=== PATIENT | male | born 1935 | race Caucasian/White ===

== ENCOUNTER → 2023-05-21 06:20 | Day surgery (SDC) | payer OTHER, SELFPAY ==
[2023-05-21 07:36] LABS: Glucose - Point of Care 130 mg/dl (70-99)
== END ==
LOC: GI 06:20
PROVIDERS: ATTENDING PHYSICIAN Internal Medicine Gastroenterology
DX: Z12.11 Encounter for screening for malignant neoplasm of colon (principal); D12.3 Benign neoplasm of transverse colon; Z85.038 Personal history of other malignant neoplasm of large intestine; Z98.0 Intestinal bypass and anastomosis status
CPT/HCPCS: 45385; 88305; 82962

== ENCOUNTER → 2023-07-03 08:56 | Outpatient (REF) | payer OTHER, SELFPAY ==
[2023-07-03 10:09] LABS: % Basophils 0.3 % (0-2); % Eosinophils 1.4 % (0-6); % Immature Granulocytes 0.4 % (0-0.5); % Lymphocytes 22.6 % (20.5-51.1); % Neutrophils 67.3 % (42.2-75.2); Absolute Eosinophils 0.1 10^3/uL (0-0.7); Absolute Lymphocytes 1.7 10^3/uL (1.2-3.4); Absolute Monocytes 0.6 10^3/uL (0.1-0.6); Absolute Neutrophils 5.2 10^3/uL (1.4-6.5); Hematocrit 35.2 % (39.0-52.0); Hemoglobin 12.1 g/dL (13.0-18.0); Mean Corp Hgb Conc. 34.4 g/dL (33.0-37.0); Mean Corpuscular Hgb 32.7 pg (27.0-31.0); Mean Corpuscular Volume 95.1 fL (80.0-94.0); Mean Platelet Volume 10.5 fL (7.4-10.4); Nucleated Red Blood Cells % 0 % (-); Platelet Count 206 10^3/uL (130-400); Red Cell Dist. Width 13.8 % (11.5-14.5); White Blood Cell Count 7.7 10^3/uL (4.8-10.8)
[2023-07-03 10:38] LABS: Iron 99 ug/dl (49-181)
[2023-07-03 10:49] LABS: Percent Saturation 33 % (20-50); Total Iron Binding Capacity 297 ug/dl (261-462)
[2023-07-03 11:45] LABS: Ferritin 20.3 ng/ml (17.9-464.0)
[2023-07-03 12:28] LABS: CEA 1.54 ng/ml
== END ==
LOC: REG 08:56
PROVIDERS: ATTENDING PHYSICIAN Internal Medicine Hematology & Oncology; FAMILY PHYSICIAN Internal Medicine
DX: C18.6 Malignant neoplasm of descending colon (principal); D51.9 Vitamin B12 deficiency anemia, unspecified; D50.8 Other iron deficiency anemias; Z86.718 Personal history of other venous thrombosis and embolism; Z95.828 Presence of other vascular implants and grafts; Z79.01 Long term (current) use of anticoagulants
CPT/HCPCS: 36415; 82378; 82728; 83540; 83550; 85025

== ENCOUNTER → 2023-10-13 08:11 | Outpatient (REF) | payer OTHER, SELFPAY ==
[2023-10-13 09:11] LABS: Blood Urea Nitrogen 41 mg/dl (9-20); Calcium 9.9 mg/dl (8.4-10.2); Carbon Dioxide 25 mmol/L (22-30); Chloride 107 mmol/L (98-107); Glucose 120 mg/dl (70-99); Potassium 4.9 mmol/L (3.5-5.1); Sodium 142 mmol/L (135-145); eGFR 41.44
== END ==
LOC: REG 08:11
PROVIDERS: ATTENDING PHYSICIAN Internal Medicine Cardiovascular Disease; FAMILY PHYSICIAN Internal Medicine
DX: I10 Essential (primary) hypertension (principal)
CPT/HCPCS: 36415; 80048

== ENCOUNTER → 2023-10-14 07:41 | Outpatient (REF) | payer OTHER, SELFPAY ==
[2023-10-14 08:51] LABS: % Basophils 0.3 % (0-2); % Eosinophils 1.2 % (0-6); % Immature Granulocytes 0.3 % (0-0.5); % Monocytes 7.7 % (1.7-9.3); % Neutrophils 71.5 % (42.2-75.2); Absolute Eosinophils 0.1 10^3/uL (0-0.7); Absolute Lymphocytes 1.7 10^3/uL (1.2-3.4); Absolute Monocytes 0.7 10^3/uL (0.1-0.6); Absolute Neutrophils 6.5 10^3/uL (1.4-6.5); Hemoglobin 12.2 g/dL (13.0-18.0); Mean Corp Hgb Conc. 33.9 g/dL (33.0-37.0); Mean Corpuscular Hgb 32.5 pg (27.0-31.0); Mean Platelet Volume 10.7 fL (7.4-10.4); Nucleated Red Blood Cells % 0 % (-); Platelet Count 220 10^3/uL (130-400); Red Blood Cell Count 3.75 10^6/uL (4.70-6.10); Red Cell Dist. Width 13.4 % (11.5-14.5); White Blood Cell Count 9.1 10^3/uL (4.8-10.8)
[2023-10-14 09:12] LABS: Iron 107 ug/dl (49-181)
[2023-10-14 09:22] LABS: Percent Saturation 35 % (20-50); Total Iron Binding Capacity 301 ug/dl (261-462)
[2023-10-14 09:44] LABS: CEA 1.85 ng/ml
[2023-10-14 09:50] LABS: Ferritin 22.5 ng/ml (17.9-464.0)
== END ==
LOC: REG 07:41
PROVIDERS: ATTENDING PHYSICIAN Internal Medicine Hematology & Oncology; FAMILY PHYSICIAN Internal Medicine
DX: C18.6 Malignant neoplasm of descending colon (principal); D51.9 Vitamin B12 deficiency anemia, unspecified; D50.8 Other iron deficiency anemias; Z86.718 Personal history of other venous thrombosis and embolism; Z95.828 Presence of other vascular implants and grafts; Z79.01 Long term (current) use of anticoagulants
CPT/HCPCS: 36415; 82378; 82728; 83540; 83550; 85025

== ENCOUNTER → 2023-11-14 09:17 | Outpatient (REF) | payer OTHER, SELFPAY ==
[2023-11-14 12:03] LABS: Glycohemoglobin (HgbA1c) 6.6 % (4.0-5.6)
[2023-11-14 13:02] LABS: ALT (SGPT) 14 U/L (0-50); AST (SGOT) 19 U/L (17-59); Albumin 4.3 g/dl (3.5-5.0); Alkaline Phosphatase 82 U/L (38-126); Blood Urea Nitrogen 42 mg/dl (9-20); Calcium 9.3 mg/dl (8.4-10.2); Carbon Dioxide 26 mmol/L (22-30); Glucose 106 mg/dl (70-99); HDL Cholesterol 52 mg/dl; LDL Cholesterol, Calculated 63 mg/dl; Total Bilirubin 0.6 mg/dl (0.2-1.3); Total Cholesterol 127 mg/dl (50-199); Triglyceride 62 mg/dl (10-149); Very Low Density Lipoprotein 12 mg/dl (0-30); eGFR 44.78
[2023-11-14 13:26] LABS: Chloride 108 mmol/L (98-107); Potassium 4.9 mmol/L (3.5-5.1); Sodium 141 mmol/L (135-145)
== END ==
LOC: REG 09:17
PROVIDERS: ATTENDING PHYSICIAN Internal Medicine; REFERRING PHYSICIAN Internal Medicine Cardiovascular Disease
DX: E11.22 Type 2 diabetes mellitus with diabetic chronic kidney disease (principal); I10 Essential (primary) hypertension; N18.31 Chronic kidney disease, stage 3a
CPT/HCPCS: 36415; 80053; 80061; 83036

== ENCOUNTER → 2024-01-12 09:35 | Outpatient (REF) | payer OTHER, SELFPAY ==
[2024-01-12 11:09] LABS: % Basophils 0.3 % (0-2); % Eosinophils 1.1 % (0-6); % Immature Granulocytes 0.5 % (0-0.5); % Lymphocytes 23.8 % (20.5-51.1); % Monocytes 8.1 % (1.7-9.3); % Neutrophils 66.2 % (42.2-75.2); Absolute Eosinophils 0.1 10^3/uL (0-0.7); Absolute Lymphocytes 2.1 10^3/uL (1.2-3.4); Absolute Monocytes 0.7 10^3/uL (0.1-0.6); Absolute Neutrophils 5.9 10^3/uL (1.4-6.5); Hematocrit 35.8 % (39.0-52.0); Hemoglobin 11.9 g/dL (13.0-18.0); Mean Corp Hgb Conc. 33.2 g/dL (33.0-37.0); Mean Corpuscular Volume 96.2 fL (80.0-94.0); Mean Platelet Volume 10.7 fL (7.4-10.4); Nucleated Red Blood Cells % 0 % (-); Platelet Count 224 10^3/uL (130-400); Red Blood Cell Count 3.72 10^6/uL (4.70-6.10); Red Cell Dist. Width 13.3 % (11.5-14.5); White Blood Cell Count 8.9 10^3/uL (4.8-10.8)
[2024-01-12 11:59] LABS: Iron 93 ug/dl (49-181)
[2024-01-12 12:10] LABS: Percent Saturation 30 % (20-50); Total Iron Binding Capacity 305 ug/dl (261-462)
[2024-01-12 18:55] LABS: Ferritin 30.9 ng/ml (17.9-464.0)
[2024-01-12 20:35] LABS: CEA 1.77 ng/ml
== END ==
LOC: REG 09:35
PROVIDERS: ATTENDING PHYSICIAN Internal Medicine Hematology & Oncology; FAMILY PHYSICIAN Internal Medicine
DX: C18.6 Malignant neoplasm of descending colon (principal); D51.9 Vitamin B12 deficiency anemia, unspecified; D50.8 Other iron deficiency anemias; Z86.718 Personal history of other venous thrombosis and embolism; Z95.828 Presence of other vascular implants and grafts; Z79.01 Long term (current) use of anticoagulants
CPT/HCPCS: 36415; 82378; 82728; 83540; 83550; 85025

== ENCOUNTER → 2024-03-08 09:06 | Outpatient (REF) | payer OTHER, SELFPAY ==
[2024-03-08 10:17] LABS: % Basophils 0.3 % (0-2); % Eosinophils 3.6 % (0-6); % Immature Granulocytes 0.5 % (0-0.5); % Lymphocytes 24.9 % (20.5-51.1); % Monocytes 8.1 % (1.7-9.3); % Neutrophils 62.6 % (42.2-75.2); Absolute Eosinophils 0.4 10^3/uL (0-0.7); Absolute Immature Granulocytes 0.1 10^3/uL (0-0.05); Absolute Lymphocytes 2.5 10^3/uL (1.2-3.4); Absolute Monocytes 0.8 10^3/uL (0.1-0.6); Absolute Neutrophils 6.4 10^3/uL (1.4-6.5); Hematocrit 37.6 % (39.0-52.0); Hemoglobin 12.5 g/dL (13.0-18.0); Mean Corp Hgb Conc. 33.2 g/dL (33.0-37.0); Mean Corpuscular Hgb 32.8 pg (27.0-31.0); Mean Corpuscular Volume 98.7 fL (80.0-94.0); Mean Platelet Volume 10.3 fL (7.4-10.4); Nucleated Red Blood Cells % 0 % (-); Platelet Count 254 10^3/uL (130-400); Red Blood Cell Count 3.81 10^6/uL (4.70-6.10); Red Cell Dist. Width 13.1 % (11.5-14.5); White Blood Cell Count 10.2 10^3/uL (4.8-10.8)
[2024-03-08 10:33] LABS: Glycohemoglobin (HgbA1c) 6.7 % (4.0-5.6)
[2024-03-08 11:51] LABS: ALT (SGPT) 16 U/L (0-50); AST (SGOT) 21 U/L (17-59); Albumin 4.4 g/dl (3.5-5.0); Alkaline Phosphatase 83 U/L (38-126); Blood Urea Nitrogen 32 mg/dl (9-20); Calcium 9.5 mg/dl (8.4-10.2); Carbon Dioxide 25 mmol/L (22-30); Chloride 105 mmol/L (98-107); Glucose 100 mg/dl (70-99); Potassium 5.1 mmol/L (3.5-5.1); Sodium 144 mmol/L (135-145); Total Bilirubin 0.6 mg/dl (0.2-1.3); Total Protein 7.3 g/dl (6.3-8.2); eGFR 41.19
[2024-03-08 12:07] LABS: Microalbumin, Random Urine 21.6 mg/dl (0.6-1.7); Microalbumin/creatinine Ratio 292.3 mg/g
== END ==
LOC: REG 09:06
PROVIDERS: ATTENDING PHYSICIAN Internal Medicine
DX: E11.22 Type 2 diabetes mellitus with diabetic chronic kidney disease (principal); D50.0 Iron deficiency anemia secondary to blood loss (chronic)
CPT/HCPCS: 36415; 80053; 82043; 82570; 83036; 85025

== ENCOUNTER → 2024-04-01 08:31 | Outpatient (REF) | payer OTHER, SELFPAY ==
[2024-04-01 09:09] LABS: % Basophils 0.3 % (0-2); % Eosinophils 2.2 % (0-6); % Immature Granulocytes 0.3 % (0-0.5); % Lymphocytes 25.3 % (20.5-51.1); % Monocytes 7.9 % (1.7-9.3); Absolute Eosinophils 0.2 10^3/uL (0-0.7); Absolute Lymphocytes 2.3 10^3/uL (1.2-3.4); Absolute Monocytes 0.7 10^3/uL (0.1-0.6); Absolute Neutrophils 5.8 10^3/uL (1.4-6.5); Hematocrit 37.7 % (39.0-52.0); Hemoglobin 12.2 g/dL (13.0-18.0); Mean Corp Hgb Conc. 32.4 g/dL (33.0-37.0); Mean Corpuscular Hgb 31.9 pg (27.0-31.0); Mean Corpuscular Volume 98.7 fL (80.0-94.0); Mean Platelet Volume 10.1 fL (7.4-10.4); Nucleated Red Blood Cells % 0 % (-); Platelet Count 221 10^3/uL (130-400); Red Blood Cell Count 3.82 10^6/uL (4.70-6.10); Red Cell Dist. Width 13.5 % (11.5-14.5); White Blood Cell Count 9.1 10^3/uL (4.8-10.8)
[2024-04-01 10:06] LABS: Iron 121 ug/dl (49-181)
[2024-04-01 10:15] LABS: Percent Saturation 39 % (20-50); Total Iron Binding Capacity 307 ug/dl (261-462)
[2024-04-01 11:24] LABS: CEA 1.77 ng/ml
[2024-04-01 14:13] LABS: Ferritin 20.3 ng/ml (17.9-464.0)
[2024-04-01 14:45] LABS: Folate > 20.0 ng/ml (2.76-20); Vitamin B12 349 pg/ml (239-931)
== END ==
LOC: REG 08:31
PROVIDERS: ATTENDING PHYSICIAN Internal Medicine Hematology & Oncology; FAMILY PHYSICIAN Internal Medicine
DX: C18.6 Malignant neoplasm of descending colon (principal); D51.9 Vitamin B12 deficiency anemia, unspecified; D50.8 Other iron deficiency anemias; Z86.718 Personal history of other venous thrombosis and embolism; Z95.828 Presence of other vascular implants and grafts; Z79.01 Long term (current) use of anticoagulants
CPT/HCPCS: 36415; 82378; 82607; 82728; 82746; 83540; 83550; 85025

== ENCOUNTER → 2024-07-02 09:09 | Outpatient (REF) | payer OTHER, SELFPAY ==
[2024-07-02 11:03] LABS: ALT (SGPT) 16 U/L (0-50); AST (SGOT) 19 U/L (17-59); Albumin 4.6 g/dl (3.5-5.0); Alkaline Phosphatase 86 U/L (38-126); Blood Urea Nitrogen 35 mg/dl (9-20); Calcium 9.9 mg/dl (8.4-10.2); Carbon Dioxide 28 mmol/L (22-30); Chloride 105 mmol/L (98-107); Glucose 113 mg/dl (70-99); HDL Cholesterol 62 mg/dl; LDL Cholesterol, Calculated 65 mg/dl; Potassium 5.3 mmol/L (3.5-5.1); Sodium 143 mmol/L (135-145); Total Bilirubin 0.9 mg/dl (0.2-1.3); Total Cholesterol 141 mg/dl (50-199); Total Protein 7.5 g/dl (6.3-8.2); Triglyceride 73 mg/dl (10-149); Very Low Density Lipoprotein 14 mg/dl (0-30)
[2024-07-02 11:40] LABS: Glycohemoglobin (HgbA1c) 6.9 % (4.0-5.6)
== END ==
LOC: REG 09:09
PROVIDERS: ATTENDING PHYSICIAN Internal Medicine
DX: I10 Essential (primary) hypertension (principal); E11.22 Type 2 diabetes mellitus with diabetic chronic kidney disease
CPT/HCPCS: 36415; 80053; 80061; 83036

== ENCOUNTER → 2024-08-20 08:10 | Outpatient (REF) | payer OTHER, SELFPAY ==
[2024-08-20 09:13] LABS: % Basophils 0.2 % (0-2); % Eosinophils 0.8 % (0-6); % Immature Granulocytes 0.3 % (0-0.5); % Lymphocytes 22.9 % (20.5-51.1); % Monocytes 7.6 % (1.7-9.3); % Neutrophils 68.2 % (42.2-75.2); Absolute Eosinophils 0.1 10^3/uL (0-0.7); Absolute Lymphocytes 2.1 10^3/uL (1.2-3.4); Absolute Monocytes 0.7 10^3/uL (0.1-0.6); Absolute Neutrophils 6.2 10^3/uL (1.4-6.5); Hemoglobin 11.5 g/dL (13.0-18.0); Mean Corp Hgb Conc. 32.9 g/dL (33.0-37.0); Mean Corpuscular Hgb 31.9 pg (27.0-31.0); Mean Platelet Volume 10.3 fL (7.4-10.4); Nucleated Red Blood Cells % 0 % (-); Platelet Count 233 10^3/uL (130-400); Red Blood Cell Count 3.61 10^6/uL (4.70-6.10); Red Cell Dist. Width 13.5 % (11.5-14.5); White Blood Cell Count 9.2 10^3/uL (4.8-10.8)
[2024-08-20 13:53] LABS: Iron 80 ug/dl (49-181)
[2024-08-20 14:03] LABS: Percent Saturation 24 % (20-50); Total Iron Binding Capacity 322 ug/dl (261-462)
[2024-08-20 15:50] LABS: Folate > 20.0 ng/ml (2.76-20); Vitamin B12 347 pg/ml (239-931)
== END ==
LOC: REG 08:10
PROVIDERS: ATTENDING PHYSICIAN Internal Medicine Hematology & Oncology; FAMILY PHYSICIAN Internal Medicine
DX: C18.6 Malignant neoplasm of descending colon (principal); D51.9 Vitamin B12 deficiency anemia, unspecified; D50.8 Other iron deficiency anemias; Z86.718 Personal history of other venous thrombosis and embolism; Z95.828 Presence of other vascular implants and grafts; Z79.01 Long term (current) use of anticoagulants
CPT/HCPCS: 36415; 82378; 82607; 82728; 82746; 83540; 83550; 85025

== ENCOUNTER → 2024-09-03 08:19 | Outpatient (REF) | payer OTHER, SELFPAY ==
[2024-09-03 09:26] LABS: ALT (SGPT) 15 U/L (0-50); AST (SGOT) 18 U/L (17-59); Albumin 4.4 g/dl (3.5-5.0); Alkaline Phosphatase 80 U/L (38-126); Blood Urea Nitrogen 36 mg/dl (9-20); Calcium 9.3 mg/dl (8.4-10.2); Carbon Dioxide 24 mmol/L (22-30); Chloride 112 mmol/L (98-107); Glucose 91 mg/dl (70-99); Sodium 145 mmol/L (135-145); Total Bilirubin 0.7 mg/dl (0.2-1.3); Total Protein 7.2 g/dl (6.3-8.2)
[2024-09-03 09:54] LABS: TSH Reflex To Free T4 1.67 uIU/ml (0.47-4.68)
== END ==
LOC: RAD 08:19
PROVIDERS: ATTENDING PHYSICIAN Internal Medicine Cardiovascular Disease; FAMILY PHYSICIAN Internal Medicine
DX: I10 Essential (primary) hypertension (principal); I48.3 Typical atrial flutter; Z79.899 Other long term (current) drug therapy; I82.5Z2 Chronic embolism and thrombosis of unspecified deep veins of left distal lower extremity
CPT/HCPCS: 36415; 71046; 80053; 84443

== ENCOUNTER 2024-09-06 07:03 | Day surgery (SDC) | payer OTHER, SELFPAY | END 2024-09-06 09:17 | disposition home or self-care (01) | LOC: CATH 07:03 | PROVIDERS: ATTENDING PHYSICIAN Student in an Organized Health Care Education/Training Program; FAMILY PHYSICIAN Internal Medicine; OTHER PHYSICIAN Internal Medicine Cardiovascular Disease | DX: I48.3 Typical atrial flutter (principal); I35.0 Nonrheumatic aortic (valve) stenosis; I45.10 Unspecified right bundle-branch block; I10 Essential (primary) hypertension; E78.5 Hyperlipidemia, unspecified; E11.9 Type 2 diabetes mellitus without complications; G47.33 Obstructive sleep apnea (adult) (pediatric); Z85.038 Personal history of other malignant neoplasm of large intestine; Z87.891 Personal history of nicotine dependence; Z79.4 Long term (current) use of insulin; Z79.01 Long term (current) use of anticoagulants; Z79.84 Long term (current) use of oral hypoglycemic drugs | CPT/HCPCS: 92960; 93005 ==

== ENCOUNTER → 2024-09-07 13:15 | Outpatient (REF) | payer OTHER, SELFPAY | LOC: RCS 13:15 | PROVIDERS: ATTENDING PHYSICIAN Internal Medicine Cardiovascular Disease; FAMILY PHYSICIAN Internal Medicine | DX: I48.3 Typical atrial flutter (principal); I35.0 Nonrheumatic aortic (valve) stenosis | CPT/HCPCS: 93306 ==

== ENCOUNTER → 2024-09-20 12:24 | Outpatient (REF) | payer OTHER, SELFPAY ==
[2024-09-20 13:34] LABS: NT-proBNP 1770 pg/ml
== END ==
LOC: REG 12:24
PROVIDERS: ATTENDING PHYSICIAN Internal Medicine Cardiovascular Disease; FAMILY PHYSICIAN Internal Medicine
DX: I10 Essential (primary) hypertension (principal)
CPT/HCPCS: 36415; 83880

== ENCOUNTER → 2024-09-29 15:20 | Outpatient (REF) | payer OTHER, SELFPAY ==
[2024-09-29 15:00] LABS: % Basophils 0.2 % (0-2); % Eosinophils 0.9 % (0-6); % Immature Granulocytes 0.2 % (0-0.5); % Lymphocytes 19.8 % (20.5-51.1); % Monocytes 7.4 % (1.7-9.3); % Neutrophils 71.5 % (42.2-75.2); Absolute Eosinophils 0.1 10^3/uL (0-0.7); Absolute Monocytes 0.7 10^3/uL (0.1-0.6); Absolute Neutrophils 7.1 10^3/uL (1.4-6.5); Hemoglobin 11.4 g/dL (13.0-18.0); Mean Corp Hgb Conc. 32.6 g/dL (33.0-37.0); Mean Corpuscular Hgb 30.9 pg (27.0-31.0); Mean Corpuscular Volume 94.9 fL (80.0-94.0); Platelet Count 296 10^3/uL (130-400); Red Blood Cell Count 3.69 10^6/uL (4.70-6.10); Red Cell Dist. Width 13.9 % (11.5-14.5)
[2024-09-29 15:54] LABS: Vitamin D, 25-OH*** 69.3 ng/mL (30-80)
== END ==
LOC: OIDL 15:20
PROVIDERS: ATTENDING PHYSICIAN Internal Medicine Hematology & Oncology
DX: C18.6 Malignant neoplasm of descending colon (principal); D51.9 Vitamin B12 deficiency anemia, unspecified; D50.8 Other iron deficiency anemias; Z86.718 Personal history of other venous thrombosis and embolism; Z95.828 Presence of other vascular implants and grafts; Z79.01 Long term (current) use of anticoagulants
CPT/HCPCS: 82306; 85025

== ENCOUNTER → 2024-10-05 07:13 | Outpatient (REF) | payer OTHER, SELFPAY ==
[2024-10-05 08:44] LABS: % Basophils 0.3 % (0-2); % Eosinophils 1.4 % (0-6); % Immature Granulocytes 1.1 % (0-0.5); % Lymphocytes 26.9 % (20.5-51.1); % Monocytes 7.5 % (1.7-9.3); % Neutrophils 62.8 % (42.2-75.2); Absolute Eosinophils 0.1 10^3/uL (0-0.7); Absolute Immature Granulocytes 0.1 10^3/uL (0-0.05); Absolute Lymphocytes 2.8 10^3/uL (1.2-3.4); Absolute Monocytes 0.8 10^3/uL (0.1-0.6); Absolute Neutrophils 6.5 10^3/uL (1.4-6.5); Hematocrit 34.7 % (39.0-52.0); Hemoglobin 11.4 g/dL (13.0-18.0); Mean Corp Hgb Conc. 32.9 g/dL (33.0-37.0); Mean Corpuscular Hgb 31.1 pg (27.0-31.0); Mean Corpuscular Volume 94.6 fL (80.0-94.0); Mean Platelet Volume 10.9 fL (7.4-10.4); Nucleated Red Blood Cells % 0 % (-); Platelet Count 217 10^3/uL (130-400); Red Blood Cell Count 3.67 10^6/uL (4.70-6.10); Red Cell Dist. Width 14.2 % (11.5-14.5); White Blood Cell Count 10.3 10^3/uL (4.8-10.8)
[2024-10-05 09:11] LABS: ALT (SGPT) 21 U/L (0-50); AST (SGOT) 25 U/L (17-59); Albumin 4.2 g/dl (3.5-5.0); Alkaline Phosphatase 72 U/L (38-126); Blood Urea Nitrogen 51 mg/dl (9-20); Calcium 9.1 mg/dl (8.4-10.2); Carbon Dioxide 28 mmol/L (22-30); Chloride 108 mmol/L (98-107); Glucose 91 mg/dl (70-99); Potassium 4.7 mmol/L (3.5-5.1); Sodium 145 mmol/L (135-145); Total Bilirubin 0.6 mg/dl (0.2-1.3)
[2024-10-05 10:27] LABS: Glycohemoglobin (HgbA1c) 6.8 % (4.0-5.6)
== END ==
LOC: REG 07:13
PROVIDERS: ATTENDING PHYSICIAN Internal Medicine Cardiovascular Disease; FAMILY PHYSICIAN Internal Medicine
DX: I10 Essential (primary) hypertension (principal); E11.22 Type 2 diabetes mellitus with diabetic chronic kidney disease
CPT/HCPCS: 36415; 80053; 83036; 85025

== ENCOUNTER 2024-10-08 11:10 | Emergency (ER) | payer OTHER, SELFPAY ==
[2024-10-08 11:30] VITALS: BP 148/108
[2024-10-08 12:02] LABS: COVID-19 Antigen Negative (Negative)
[2024-10-08 12:07] VITALS: BP 156/64; BMI 26.7
--- NOTE | 2024-10-08 12:11 | ED.GENMED ---
History of Present Illness
General
Chief Complaint: Cold/Flu/URI Symptoms
Source: patient
Exam Limitations: none
Time Seen by Provider: 10/08/24 11:49
History of Present Illness
History of Present Illness:
89-year-old male with history of hypertension fluid retention presents with 2 days worth of chills cough and sweats. He denies shortness of breath. No measurable fever at home. No known sick contacts. He notes a clear production to his cough.
No chest pain. He is on Eliquis and has not missed any doses. No other complaints
Past History
Past History
ED Past Medical History: HTN, Hypercholesterolemia, NIDDM and Other (Benign paroxysmal vertigo November 2018)
ED Past Surgical History: Orthopedic and Other (Left thoracentesis, thyroid nodule)
Social History
Tobacco: Former smoker
Alcohol: None
Drug: None
Personal:
Living: with family
Employment: Retired
Family History
Family History: Other (Noncontributory)
Phy Exam
Physical Exam
Physical Exam:
General: Well-appearing male no acute respiratory distress
HEENT normocephalic atraumatic heart: Regular rate and rhythm
Lungs: Clear no wheeze
Extremities: Mild edema bilateral lower extremities
Skin is warm no rash
Course
Orders/Labs/Results
Orders:
Orders
10/08/24 11:33
Chest [CR Chest - 2 Views ] Urgent
Comment:
Reason For Exam: cough and chills
10/08/24 11:36
COVID-19 Antigen Urgent
Source: Nasal Swab
INF RAPID [Influenza A+B Rapid Molecular] Urgent
ROYA Source: Nasal Swab
Specimen Description:
Vital Signs
Initial and Last Documented VS:
Initial Vital Signs
Temp Pulse Resp BP Pulse Ox
99.2 F 65 20 148/108 96
10/08/24 11:30 10/08/24 11:30 10/08/24 11:30 10/08/24 11:30 10/08/24 11:30
Last Documented Vital Signs
Temp Pulse Resp BP Pulse Ox
99 F 66 16 130/63 94
10/08/24 15:08 10/08/24 15:08 10/08/24 15:08 10/08/24 15:08 10/08/24 15:08
MDM/Problems Addressed
Differential Diagnosis Includes:
Cough chills since yesterday. Consider bronchitis versus pneumonia versus URI COVID and flu test pending. Unlikely to be PE secondary to anticoagulated state. Chest x-ray pending
*Pulse Oximetry
SaO2: 96
Oxygen Mode of Delivery: Room air
Patient hypoxic: no
*Critical Care Note
Total Time (30-74mins, 75-104mins- exclusive of procedures): Not Applicable
Update Note
Update Note:
X-ray clear COVID and flu negative. Suspect URI likely viral in nature. Recommended supportive care. Stable for discharge no indication for admission
ED Attending Note
-
Portions of this chart may have been created with voice recognition software.� Occasional wrong word or��sound alike� substitutions may have occurred due to the inherent limitations of voice recognition software.
Discharge Plan
Departure
Patient Disposition: Home (Routine Discharge)
Date of Disposition: 10/08/24
Time of Disposition: 15:22
Patient with high blood pressure during this ER visit?: No
Discharge Problem:
URI (upper respiratory infection), Acute bronchitis
Instructions: Acute Bronchitis, Adult (DC)
Prescriptions:
No Action
atorvastatin 10 MG tablet
10 mg PO QPM
PreserVision AREDS 1 CAP capsule
1 cap PO BID
Caltrate 600 plus D 1 EACH tablet,chewable
1 ea PO DAILY
insulin glargine [Lantus Solostar U-100 Insulin] 300 UNITS/3 ML insulin pen
12 units SC HS
Patient Comments:
9 U
multivitamin Tablet
1 tab PO DAILY
metformin 1,000 mg Tablet
1,000 mg PO BID
Eliquis 5 mg Tablet
5 mg PO BID
amlodipine 10 mg Tablet
10 mg PO DAILY
ferrous sulfate 220 mg (44 mg iron)/5 mL Elixir
220 mg PO DAILY
metoprolol succinate 25 mg tablet extended release 24 hr
25 mg PO DAILY
docusate sodium 100 mg Capsule
100 mg PO BID Qty: 60 0RF
amiodarone 200 mg Tablet
200 mg PO BID
cyanocobalamin (vitamin B-12) 1,000 mcg Tablet
1,000 mcg PO DAILY
docusate sodium [Colace] 100 mg Capsule
100 mg PO DAILY
valsartan
160 mg PO BID
polyethylene glycol 3350 [HealthyLax] 17 gram powder in packet
17 g PO PRN PRN (Reason: constipation)
Referrals:
Sam Murdock I., DO [Family Provider, Internal Medicine]
Activity Restrictions/Additional Instructions:
Rest. Drink plenty of fluids. Use bwso-dak-offyrtz cough and cold medicines if needed. Return if worse otherwise follow-up with your doctor
Interventions
Interventions:
*Risk Screen - Suicide Last Done: 10/08/24 11:30
*General Assessment Last Done: 10/08/24 12:08
*Neglect/Abuse Screening Last Done: 10/08/24 11:30
*ED COVID-19 Vaccine History Last Done: 10/08/24 12:08
ED- Pulmonary Assessment Last Done: 10/08/24 12:10
Discharge Date and Time
Print Language: SLOVAK
[2024-10-08 15:08] VITALS: BP 130/63
== END 2024-10-08 15:29 | disposition home or self-care (01) ==
LOC: EMR 11:10
PROVIDERS: Emergency Medicine; EMERGENCY PHYSICIAN Emergency Medicine; FAMILY PHYSICIAN Internal Medicine
DX: J06.9 Acute upper respiratory infection, unspecified (principal); J20.9 Acute bronchitis, unspecified; I10 Essential (primary) hypertension; E78.00 Pure hypercholesterolemia, unspecified; E11.9 Type 2 diabetes mellitus without complications; Z79.01 Long term (current) use of anticoagulants; Z87.891 Personal history of nicotine dependence
CPT/HCPCS: 99283; 71046; 87502; 87811

== ENCOUNTER 2024-10-13 17:00 | Inpatient (IN) | payer OTHER, SELFPAY ==
[2024-10-13 11:36] VITALS: BP 131/61
[2024-10-13 11:53] LABS: % Basophils 0.1 % (0-2); % Eosinophils 0.3 % (0-6); % Immature Granulocytes 0.7 % (0-0.5); % Lymphocytes 11.3 % (20.5-51.1); % Monocytes 6.6 % (1.7-9.3); Absolute Immature Granulocytes 0.1 10^3/uL (0-0.05); Absolute Lymphocytes 1.7 10^3/uL (1.2-3.4); Absolute Neutrophils 12.3 10^3/uL (1.4-6.5); Hematocrit 30.9 % (39.0-52.0); Hemoglobin 10.5 g/dL (13.0-18.0); Mean Corpuscular Hgb 31.7 pg (27.0-31.0); Mean Corpuscular Volume 93.4 fL (80.0-94.0); Nucleated Red Blood Cells % 0 % (-); Platelet Count 179 10^3/uL (130-400); Red Blood Cell Count 3.31 10^6/uL (4.70-6.10); Red Cell Dist. Width 15.1 % (11.5-14.5); White Blood Cell Count 15.1 10^3/uL (4.8-10.8)
[2024-10-13 12:16] LABS: ALT (SGPT) 18 U/L (0-50); AST (SGOT) 20 U/L (17-59); Albumin 3.9 g/dl (3.5-5.0); Alkaline Phosphatase 70 U/L (38-126); Blood Urea Nitrogen 41 mg/dl (9-20); Calcium 8.4 mg/dl (8.4-10.2); Carbon Dioxide 24 mmol/L (22-30); Chloride 107 mmol/L (98-107); Glucose 226 mg/dl (70-99); Potassium 4.6 mmol/L (3.5-5.1); Sodium 140 mmol/L (135-145); Total Protein 6.6 g/dl (6.3-8.2)
[2024-10-13 13:42] VITALS: BP 129/61
--- NOTE | 2024-10-13 15:41 | ED.GENMED ---
History of Present Illness
General
Chief Complaint: Weakness
Source: patient and family (daughter)
Time Seen by Provider: 10/13/24 15:20
History of Present Illness
History of Present Illness:
Patient to ED with complaint of increasing weakness, worsening cough. He was seen in ED on friday for his cough. CXR neg at that time, discharged home with dx of bronchitis. Patient states he continued to become weaker. Yesterday he fell in his
garage and was unable to get up. Denies hitting his head. Reports pain to left hip and left lat ribs. Family assisted him up and into house. He refused to come to ED saying he was too week. TOday cough is worsening. Brought to ED by family for
eval. Temp of 100 at home. Poor appetite.
Past History
Past History
ED Past Medical History: HTN, Hypercholesterolemia, NIDDM and Other (Benign paroxysmal vertigo November 2018)
ED Past Surgical History: Orthopedic and Other (Left thoracentesis, thyroid nodule)
Social History
Tobacco: Former smoker
Alcohol: None
Drug: None
Personal:
Living: with family
Employment: Retired
Family History
Family History: Other (Noncontributory)
Review of Systems
Review of Systems
Allergies reviewed?: Yes
All Other Systems: ROS reviewed and negative except as documented in HPI and ROS
Constitutional: Reports no symptoms
EENT: Reports no symptoms
Respiratory: Reports cough and trouble breathing
Cardiac: Reports no symptoms
ABD/GI: Reports anorexia
: Reports no symptoms
Musculoskeletal: Reports joint pain (pain to left lat ribs, left hip)
Skin: Reports no symptoms
Neurological: Reports weakness
Psychiatric: Reports no symptoms
Phy Exam
General Physical Exam
General Presentation: moderate distress
General age: appears stated age
General Skin: warm and dry
General Habitus: normal
General Mental: alert
General Hydration: dry mucous membranes
Cardiovascular Exam
Cardiovascular Exam: regular rate/rhythm
Pulmonary Exam
Pulmonary Exam: no wheezing
Breath Sounds: Rhonchi: left lower and right lower
Chest Wall: Left lateral: tenderness
Gastrointestinal Exam
Gastrointestinal Exam: normal bowel sounds, non tender, soft and no organomegaly
Neurological Exam
Neurological Exam: alert, oriented x3, CN II-XII intact, no motor deficits, no sensory deficits and speech normal
Musculoskeletal Exam
Musculoskeletal Exam: full ROM and neuro vasc intact
Skin Exam
Skin Exam: normal color, warm/dry and no rash
Psychiatric Exam
Psychiatric Exam: normal mood/affect
Course
Orders/Labs/Results
Orders:
Orders
10/13/24 Lunch
2000 calorie (17 carb) Diabetic
At Your Request: Full Participation
Does patient need a safe tray?: No
10/13/24 11:39
CR Chest - 2 Views Urgent
Comment:
Reason For Exam: cough, L rib pain
Hip, Right 2-3 Views [CR Hip - RT w/wo Pel 2-3 Vw*] Urgent
Comment:
Reason For Exam: pain
Include a pelvis x-ray?: Yes
10/13/24 11:44
Complete Blood Count/With Diff Urgent
Comprehensive Metabolic Panel Urgent
10/13/24 15:41
0.9% Sodium Chloride 1000 ml [Nss] 1,000 ml IV BOLUS
10/13/24 15:49
CefTRIAXone [Rocephin] 1,000 mg IV NOW STA
10/13/24 15:51
Doxycycline [Vibramycin] 100 mg PO NOW STA
10/13/24 15:59
Ribs, Left 2 View No PA Chest [CR Ribs-left 2 Vw No Pa Chest] Urgent
Comment:
Reason For Exam: fall
10/13/24 16:12
Lactic Acid Urgent
10/13/24 16:29
C DIFF [C difficile Antigen & Toxins] Routine
ROYA Source: Feces/Stool
Specimen Description:
10/13/24 16:30
Admit/Transfer Patient As Directed
Co-Sign Provider:
Level of Care: Inpatient admission
Assign to:: Medical/Surgical
Physician / Group: Mera Duron
Diagnosis: community acquired pneumonia
Reason for Hospitalization: community acquired pneumonia
Expected length of stay greater than two midnights?: Yes
ELOS- Estimated Length of Stay in days: 3
I certify the patient meets the requirements for IP care: Yes
Code Status As Directed
Resuscitation Status: Full Code
10/13/24 17:24
Legionella Urinary Antigen Routine
ROYA Source: Urine
Specimen Description:
Strep pneumoniae Antigen Routine
ROYA Source: Urine
Specimen Description:
10/13/24 18:27
0.9% Sodium Chloride 1000 ml [Nss] 1,000 ml IV 80 mls/hr
Acetaminophen [Tylenol] 650 mg PO Q4HPRN PRN
Bisacodyl [Dulcolax] 10 mg RECTAL [id number] PRN
Dextrose 50%-Water [Dextrose 50% Syringe] 12.5 grams IV [id number] PRN
Docusate W/Senna [Senokot-S] 1 tablet PO BIDPRN PRN
Glucagon [GlucaGen] 1 mg IM PRN PRN
Insulin Aspart Corrective Low [Novolog Flexpen-Low Resistance] See Protocol SC AC
Lactobac/Bifidobac [Visbiome] 1 cap PO DAILY
Oxycodone [Roxicodone] 5 mg PO Q4HPRN PRN
Polyethylene Glycol Powder [Miralax] 17 grams PO DAILYPRN PRN
10/13/24 18:27
EKG [Electrocardiogram (*1)] Routine
Reason for Study: QTc Monitoring
Activity As Directed
Activity Level: As Tolerated
Bedside Glucose Monitoring As Directed
Frequency: AC&HS
Additional Instructions:: Change to q6h if pt on TPN, tube feeding or not eating
Vital Signs As Directed
Frequency: Per unit guidelines
Acapella [Rx Pep / Acapela] [RESP] Routine
Incentive Spirometry [Rx Incentive Spirometry] [RESP] Routine
Frequency: q1h while awake
Physical Therapy Consult [Pt Eval And Treat] Routine
Activity Level: As Tolerated
10/13/24 20:00
Apixaban [Eliquis] 2.5 mg PO BID
Guaifenesin [Mucinex] 600 mg PO Q12
Lidocaine [Lidocaine 4% Patch] 1 patch TOPICAL DAILY@1999
Apply Lidocaine patch(s) to:: left chest
10/13/24 21:15
Lactate Level [Lactic Acid] Q6H
10/14/24 02:00
Lactate Level [Lactic Acid] Q6H
10/14/24 06:00
Basic Metabolic Panel IN AM
Complete Blood Count/With Diff IN AM
Glycohemoglobin (HgbA1c) IN AM
Magnesium IN AM
10/14/24 08:00
Doxycycline [Vibramycin] 100 mg PO Q12
10/14/24 16:00
CefTRIAXone [Rocephin] 1,000 mg IV Q24H
Abnormal Lab Results
10/13/24 10/13/24
11:44 16:12
WBC 15.1 H 10^3/uL
(4.8-10.8)
RBC 3.31 L 10^6/uL
(4.70-6.10)
Hgb 10.5 L g/dL
(13.0-18.0)
Hct 30.9 L %
(39.0-52.0)
MCH 31.7 H pg
(27.0-31.0)
RDW 15.1 H %
(11.5-14.5)
MPV 11.0 H fL
(7.4-10.4)
Abs Immat Gran (auto) 0.1 H 10^3/uL
(0-0.05)
Absolute Neuts (auto) 12.3 H 10^3/uL
(1.4-6.5)
Absolute Monos (auto) 1.0 H 10^3/uL
(0.1-0.6)
Immature Gran % 0.7 H %
(0-0.5)
Neutrophils % 81.0 H %
(42.2-75.2)
Lymphocytes % 11.3 L %
(20.5-51.1)
BUN 41 H mg/dl
(9-20)
Creatinine 2.2 H mg/dL
(0.7-1.3)
Glucose 226 H mg/dl
(70-99)
Lactic Acid 2.5 H mmol/L
(0.7-2.0)
10/13/24 11:44
10/13/24 11:44
Vital Signs
Initial and Last Documented VS:
Initial Vital Signs
Temp Pulse Resp BP Pulse Ox
98.2 F 76 16 131/61 97
10/13/24 11:36 10/13/24 11:36 10/13/24 11:36 10/13/24 11:36 10/13/24 11:36
Last Documented Vital Signs
Temp Pulse Resp BP Pulse Ox
98.7 F 90 16 127/61 97
10/13/24 18:37 10/13/24 21:00 10/13/24 18:37 10/13/24 21:00 10/13/24 18:37
*Pulse Oximetry
SaO2: 99
Oxygen Mode of Delivery: Room air
Patient hypoxic: no
*Critical Care Note
Total Time (30-74mins, 75-104mins- exclusive of procedures): Not Applicable
Update Note
Update Note:
Patient to ED wtih complaint of increasing weakness, worsening cough. Fell yesterday due to his weakness. Seen in ED on friday, CXR neg at that time. CXR today reveals opacities bilateral lower lobes. Radiology read of probable atelectasis, less
likely pneumonia. Clinically he presnets as pneumonia. WBC 15, lactic is pending. He reports worsening cough with thick white secretions. Tachypnic. PUlse ox 95% RA. Temp of 100 at home, afebrile here. Admit to hospitalist for pneumonia,
weakness. Antibiotics started in dept.
ED Attending Note
-
Portions of this chart may have been created with voice recognition software.� Occasional wrong word or��sound alike� substitutions may have occurred due to the inherent limitations of voice recognition software.
Discharge Plan
Departure
Patient Disposition: Admit
Date of Disposition: 10/13/24
Time of Disposition: 15:51
Presentation/result/management discussed w/ accepting MD/DO: Hospitalist
Condition: Fair
Covid-19: Not Applicable
Discharge Problem:
Pneumonia, Weakness
Interventions
Interventions:
*Nursing Disposition Last Done: 10/13/24 18:30
ED- Cardiac Assessment Last Done: 10/13/24 16:27
ED- Neurological Assessment Last Done: 10/13/24 16:27
ED- Pulmonary Assessment Last Done: 10/13/24 16:27
Discharge Date and Time
Discharge Date/Time: 10/13/24 18:31
[2024-10-13 15:57] VITALS: BMI 25.6
--- NOTE | 2024-10-13 16:01 | HPS.HSE ---
Addendum entered and electronically signed by Mera Duron MD 10/13/24 20:01:
Rib X-Ray
IMPRESSION:
Probable subacute mildly displaced lateral left eighth and ninth rib fractures
-continue plan as below with pain control and incentive spirometry
Addendum entered and electronically signed by Mera Duron MD 10/13/24 20:00:
acute on chronic kidney disease
-creatinine 2.2, baseline closer to 1.5-1.7
-IVF as below
-hold CHAR FILTER TANK TENDER Valsartan
-Eliquis dose decreased as below
Addendum entered and electronically signed by Mera Duron MD 10/13/24 18:47:
Given age and creatinine, Eliquis will be reduced to 2.5mg.
Original Note:
Family Physician
-
Family Physician: Chris Cordova
Chief Complaint
-
weakness
History of Present Illness
Mr. Kevin Vaughn is a 89 yo man with hx HTN, HLD, IDDM, BPPV, CKD, atrial fibrillation s/p cardioversion, recent ER visit on 10/08 for likely URI presents to the ER with increasing weakness and worsening cough.
Patient was seen in the ER 2 days ago for cough. He states he was feeling well after hospital discharge until yesterday. He started to feel very cold/chills. He sat in the warm garage. Patient fell out of his chair and couldn't get up. He had to
wait until daughter returned home. Patient reports diarrhea over past 2 days. Denies abdominal pain. No dysuria or difficulty urinating. He has had worsening cough.
Patient reports left sided rib pain post fall.
Medical History
Past Medical History
Past Medical History: Reports Other
Additional Past Medical History:
Colon cancer
Hypertension
Hyperlipidemia
Type 2 diabetes
BPV
Thyroid nodules
Coronary artery disease
UT
Atrial flutter
Past Surgical History: Reports Other
Additional Past Surgical History:
Left thoracentesis
Left colectomy
Prostatectomy
Social History
Tobacco: Former Smoker
Alcohol: None
Drug: None
Personal:
Living: With Family
Employment: Retired
Family History
Family History: Not pertinent
Allergies / Home Medications
Allergies reflects when Allergies were last updated in [facility].
Home Medications with original date entered in [employer]
Allergy/Medication List:
Allergies
Allergy/AdvReac Type Severity Reaction Status Date / Time
No Known Allergies Allergy Verified 10/13/24 11:40
Home Medications
atorvastatin 10 mg tablet 10 mg PO QPM High cholesterol 12/07/18
vitamins A,C,P-zkal-kdolln 4,296 mcg-226 mg-90 mg capsule (PreserVision AREDS) 1 cap PO BID Supplement 12/07/18
calcium 600 mg (as carbonate)-vit D3 20 mcg (800 unit) chewable tablet (Caltrate plus D) 1 ea PO DAILY Supplement 08/28/21
insulin glargine 100 unit/mL (3 mL) subcutaneous pen (Lantus Solostar U-100 Insulin) 12 units SC HS Diabetes 08/29/21
apixaban 5 mg tablet (Eliquis) 5 mg PO BID Blood clot prevention/tx 06/25/22
metformin 1,000 mg tablet 1,000 mg PO BID Diabetes 06/25/22
multivitamin 1 tab PO DAILY Supplement 06/25/22
amlodipine 10 mg tablet 10 mg PO DAILY Blood Pressure 12/31/22
ferrous sulfate 220 mg (44 mg iron)/5 mL oral elixir 220 mg PO DAILY Supplement 12/31/22
metoprolol succinate 25 mg tablet,extended release 24 hr 25 mg PO DAILY Blood Pressure 12/31/22
docusate sodium 100 mg capsule 100 mg PO BID #60 caps 01/02/23
amiodarone 200 mg tablet 200 mg PO BID 09/06/24
cyanocobalamin (vitamin B-12) 1,000 mcg tablet 1,000 mcg PO DAILY 09/06/24
docusate sodium 100 mg capsule (Colace) 100 mg PO DAILY 09/06/24
polyethylene glycol 3350 17 gram oral powder packet (HealthyLax) 17 g PO PRN PRN constipation 09/06/24
valsartan 160 mg PO BID 09/06/24
*awaiting home med rec
Review of Systems
-
History Source: Patient
A 12 point ROS was completed and negative except as noted: Yes
Physical Exam
Vital Signs
Vital Signs
Temp Pulse Resp BP Pulse Ox
98.2 F 80 16 129/61 99
10/13/24 11:36 10/13/24 13:42 10/13/24 11:36 10/13/24 13:42 10/13/24 15:44
Physical Exam
General: No Apparent Distress
HEENT: PERRLA
Respiratory: Clear; No Wheezes
Cardiac: S1/S2 and Regular Rhythm
GI: Soft and Non Tender
Musculoskeletal: No Edema
Skin: Warm and Dry; No Rash
Neuro: AO x 3
Psych: Calm
Laboratory Results
-
10/13/24 11:44
10/13/24 11:44
Laboratory Results
Total Bilirubin 1.0 mg/dl (0.2-1.3) 10/13/24 11:44
AST 20 U/L (17-59) 10/13/24 11:44
ALT 18 U/L (0-50) 10/13/24 11:44
Alkaline Phosphatase 70 U/L (38-126) 10/13/24 11:44
Data Reviewed
-
Diagnostic Radiology: Report Reviewed by me
Lab Data: Labs Reviewed by me
Impression/Plan
-
Mr. Kevin Vaughn is a 89 yo man with hx HTN, HLD, IDDM, BPPV, CKD, atrial fibrillation s/p cardioversion, recent ER visit on 10/08 for likely URI presents to the ER with increasing weakness and worsening cough.
Triage VS: T 98.2, P 76, RR 16, BP 131/61, SpO2 97%
LABS: WBC 15.1, Hg 10.5, PLT 179, Na 140, K+ 4.6, CO2 24, BUN 41, Cr 2.2, Glucose 226, Ca 8.4, liver enzymes WNL
CXR
IMPRESSION:
Slightly increased bibasilar opacities favored to represent scarring and/or atelectasis, less likely pneumonia.
HIP X-RAY
IMPRESSION:
No acute fracture or dislocation.
MAR: IV Ceftriaxone/Doxycycline, IVF
Community Acquired Pneumonia
Severe sepsis 2/2 above
-patient with progressive weakness and cough in setting of Leukocytosis and elevated lactate
-covid and flu checked on 10/08 - negative
-admit to med/surg
-check Legionella and Strep Ag
-continue Ceftriaxone/Doxycycline
-Mucinex, Acapella
-IVF
-trend Lactate
Diarrhea
-check C. Diff
-start probiotics
Weakness 2/2 above
-PT consulted
Rib pain post fall
-awaiting dedicated rib x-ray
-lidocaine patch
-Oxycodone PRN severe pain
-IS
Atrial Fibrillation s/p cardioversion
-CHAR FILTER TANK TENDER Amiodarone
-CHAR FILTER TANK TENDER Eliquis
Essential HTN
HLD
IDDM
*awaiting med rec
DVT PPx CHAR FILTER TANK TENDER Eliquis
FULL CODE
76 minutes spent on patient care
[2024-10-13] MEDS: ROCEPHIN 1000 MG IV (16:14)
[2024-10-13] MEDS: NSS 1000 IV ×2 (16:14→20:58)
[2024-10-13] MEDS: VIBRAMYCIN 100 MG PO (16:15)
[2024-10-13 16:30] LABS: Lactic Acid 2.5 mmol/L (0.7-2.0)
[2024-10-13 18:37] VITALS: BP 164/67; BMI 25.2
[2024-10-13] MEDS: NOVOLOG FLEXPEN-LOW RESISTANCE SC (20:58)
[2024-10-13] MEDS: LIDOCAINE 4% PATCH 1 PATCH TOPICAL (20:59)
[2024-10-13] MEDS: OCUVITE SOFTGEL 1 CAP PO (21:00)
[2024-10-13] MEDS: ELIQUIS 2.5 MG PO (21:00)
[2024-10-13] MEDS: MUCINEX 600 MG PO (21:00)
[2024-10-13] MEDS: TOPROL XL 25 MG PO (21:00)
[2024-10-13] MEDS: VISBIOME 1 CAP PO (21:00)
[2024-10-13] MEDS: LIPITOR 10 MG PO (21:00)
[2024-10-13 21:32] LABS: Lactic Acid 1.5 mmol/L (0.7-2.0)
[2024-10-13 22:25] LABS: Glucose - Point of Care 216 mg/dl (70-99)
[2024-10-13] MEDS: LANTUS 0.06 UNITS SC (22:25)
[2024-10-13 23:05] VITALS: BP 117/45
[2024-10-14 07:14] VITALS: BP 125/65
[2024-10-14 07:20] LABS: Glucose - Point of Care 144 mg/dl (70-99)
[2024-10-14 07:39] LABS: % Basophils 0.1 % (0-2); % Eosinophils 0.1 % (0-6); % Immature Granulocytes 0.6 % (0-0.5); % Lymphocytes 11.4 % (20.5-51.1); % Monocytes 6.8 % (1.7-9.3); Absolute Immature Granulocytes 0.1 10^3/uL (0-0.05); Absolute Lymphocytes 1.5 10^3/uL (1.2-3.4); Absolute Monocytes 0.9 10^3/uL (0.1-0.6); Absolute Neutrophils 10.9 10^3/uL (1.4-6.5); Hematocrit 26.3 % (39.0-52.0); Hemoglobin 8.9 g/dL (13.0-18.0); Mean Corp Hgb Conc. 33.8 g/dL (33.0-37.0); Mean Corpuscular Hgb 31.3 pg (27.0-31.0); Mean Corpuscular Volume 92.6 fL (80.0-94.0); Mean Platelet Volume 11.2 fL (7.4-10.4); Nucleated Red Blood Cells % 0 % (-); Platelet Count 138 10^3/uL (130-400); Red Blood Cell Count 2.84 10^6/uL (4.70-6.10); Red Cell Dist. Width 15.4 % (11.5-14.5); White Blood Cell Count 13.5 10^3/uL (4.8-10.8)
[2024-10-14] MEDS: NOVOLOG FLEXPEN-LOW RESISTANCE SC (07:49)
[2024-10-14] MEDS: VIBRAMYCIN 100 MG PO ×2 (08:00→19:58)
[2024-10-14] MEDS: OCUVITE SOFTGEL 1 CAP PO ×2 (08:00→19:58)
[2024-10-14] MEDS: VISBIOME 1 CAP PO (08:00)
[2024-10-14] MEDS: MUCINEX 600 MG PO ×2 (08:00→19:58)
[2024-10-14] MEDS: TOPROL XL 25 MG PO ×2 (08:01→19:58)
[2024-10-14] MEDS: ELIQUIS 2.5 MG PO ×2 (08:01→19:57)
[2024-10-14] MEDS: PACERONE 200 MG PO (08:01)
[2024-10-14 08:13] LABS: Blood Urea Nitrogen 33 mg/dl (9-20); Calcium 7.6 mg/dl (8.4-10.2); Carbon Dioxide 21 mmol/L (22-30); Chloride 111 mmol/L (98-107); Estimated Creatinine Clearance 25 ml/min; Glucose 135 mg/dl (70-99); Magnesium 1.9 mg/dl (1.6-2.3); Potassium 3.5 mmol/L (3.5-5.1); Sodium 139 mmol/L (135-145); eGFR 33.51
[2024-10-14] MEDS: ROXICODONE 5 MG PO ×2 (08:15→20:16)
[2024-10-14 10:53] VITALS: BP 121/62; PULSE 74; O2SAT 93
--- NOTE | 2024-10-14 12:22 | CM ---
CM following re: discharge planning.
Reviewed pt's chart, met with pt and pt's spouse at bedside.
Pt is an 89 year old male, admitted with primary dx of weakness and worsening cough. PMH includes: HTN, HLD, IDDM, BPPV, CKD, atrial fibrillation s/p cardioversion.
Pt reports he was born in [place], grew up in [place], emig[place] to [facility] [place] [facility] at the age of 15. Pt reports he lives with spouse (who is immigrant from [facility]) in a [facility], 2 steps to enter, has 2 supportive sons: one lives next door and another lives in [place].
Pt described himself as independent in all areas [employer]. No DME, VN or SNF history. Pt reports he is experiencing ribs pain after he fell at home. Pt expressed his desire to have VN services at discharge and he is requested [facility]. A referral to [facility]
made.
PCP: Sam Murdock
Pharmacy: [facility].
D/C plan: per pt's request, home with [facility] and family support. Family to transport at discharge.
CM will follow with discharge plan updates as hospitalization progresses
[2024-10-14] MEDS: NOVOLOG FLEXPEN-LOW RESISTANCE 1 UNITS SC (12:43)
[2024-10-14 13:07] LABS: Glucose - Point of Care 184 mg/dl (70-99)
--- NOTE | 2024-10-14 13:23 | VNURNOTE ---
Attempted to meet with patient at bedside. He was not in room. Will follow up later.
--- NOTE | 2024-10-14 13:51 | W.PN.HOSP.TC ---
Today's Communication/Plan
-
Continue antibiotics
Incentive spirometry, Mucinex, Acapella
IV fluid hydration
Assessment / Plan
Assessment / Plan
Gen-AAOx3, NAD
HEENT-NC, AT, anicteric, clear oral mm
Neck-supple
CV-reg, no M, +S1/S2
Lungs-clear B/L
Abd-soft, NT, ND
Ext-no edema
Musculoskeletal-no cyanosis, clubbing
Skin-warm and dry
Neuro-grossly non-focal
Psych-calm, cooperative
Sepsis due to pneumonia -presumed community-acquired pneumonia. Has had a productive cough for the past 2 weeks, mostly clear phlegm but occasionally brown and elizabet colored. Denies hemoptysis. Did have diarrhea for 2 days prior to admission. No
bowel movements recorded in the hospital.
Admission 2 view chest x-ray shows slightly increased bibasilar opacities representing scarring and/or atelectasis, less likely pneumonia.
Chest CT performed today shows mild posterior bibasilar pneumonia, left greater than right. Minor bilateral upper lobe pneumonitis. Trace pleural effusions.
Afebrile but mild leukocytosis noted. Urinary antigens negative, influenza negative. Unfortunately, blood cultures not sent.
Continue ceftriaxone, doxycycline.
Lactic acidosis due to sepsis, resolved.
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 Baseline creatinine 1.5, was 2.2 on admission. 1.9 today.
Hold valsartan, monitor labs. Creatinine starting to trend down as of this morning. Gentle IV fluids.
Acute traumatic left 8th and 9th rib fractures -due to trauma from fall, likely underlying osteoporosis as well. Mildly displaced fractures noted on x-ray. Continue supportive care, lidocaine patch.
Acute on chronic anemia -baseline chronic anemia with hemoglobin running between 11 and 12. Hemoglobin down to 8.9 this morning. No obvious bleeding. MCV normal.
Anemia labs noted in August of this year showed normal iron panel with ferritin of 17. Appears that he was getting iron infusions as outpatient.
B12 347, folic acid greater than 20. Suspect anemia of chronic inflammation.
DM2 with hyperglycemia -hemoglobin A1c 6.8% on October 05. Glucose 135 this morning. At home he is on metformin and Lantus insulin. Would discontinue metformin given ALAN and CKD.
Hyperlipidemia -atorvastatin.
Essential hypertension -stable.
Paroxysmal typical atrial flutter -had cardioversion August 2022. Continue amiodarone, Eliquis.
Chronic heart failure preserved EF -stable.
Moderate aortic stenosis -last echocardiogram August 2024.
History of nephrolithiasis
BERENICE -unclear if still on CPAP.
BPH
History of left-sided colon cancer -underwent robotic left colectomy June 2022, Dr. Welsh.
Full code
updated at the bedside.
Anticipated Discharge: 24 - 48 hours
Subjective/Interval History
-
Date of Service: October 14, 2024
Patient seen and examined. Complaining of left sided rib pain with deep breathing. Denies shortness of breath.
Objective Data
-
Labs:
Laboratory Results
10/14/24
07:09
WBC 13.5 H
Hgb 8.9 L
Hct 26.3 L
Plt Count 138 D
Sodium 139
Potassium 3.5
Chloride 111 H
Carbon Dioxide 21 L
BUN 33 H
Creatinine 1.9 H
Glucose 135 H
Calcium 7.6 L
Vital Signs:
Vital Signs
Temp Pulse Resp BP Pulse Ox
98.1 F 79 16 125/65 92
10/14/24 07:14 10/14/24 08:01 10/14/24 07:14 10/14/24 08:01 10/14/24 07:14
I&O
10/13/24 10/14/24 10/15/24
06:59 06:59 06:59
Intake Total 800 / 800
Output Total 325 / 325
Balance 475 / 475
Review of Systems
-
History Source: Patient
All other systems: Reviewed and negative
[2024-10-14] MEDS: ROCEPHIN 1000 MG IV (14:44)
[2024-10-14] MEDS: STERILE WATER FOR INJECTION 10 ML IV (14:44)
[2024-10-14] MEDS: KCL 20 MEQ PO (14:44)
[2024-10-14] MEDS: 0.45%NACL 1000 IV (14:44)
--- NOTE | 2024-10-14 14:48 | VNURNOTE ---
Home Health Liaison met with patient and spouse at bedside to discuss [facility] nurse/therapy, visits, schedule and homebound status. Both are agreeable and understand that visits at home will be 2-3 x per week to assess and teach medical management.
Patient and spouse are aware that [facility] will contact them for start of care in 1-2 days after discharge from .
[facility] referral accepted in [facility].
[2024-10-14 15:21] VITALS: BMI 25.2
[2024-10-14 15:46] VITALS: BP 125/63
[2024-10-14 16:50] LABS: Glucose - Point of Care 225 mg/dl (70-99)
[2024-10-14] MEDS: NOVOLOG FLEXPEN-LOW RESISTANCE 2 UNITS SC (17:19)
[2024-10-14] MEDS: LIPITOR 10 MG PO (17:19)
[2024-10-14] MEDS: LIDOCAINE 4% PATCH 1 PATCH TOPICAL (20:13)
[2024-10-14 22:20] LABS: Glucose - Point of Care 229 mg/dl (70-99)
[2024-10-14] MEDS: LANTUS 0.06 UNITS SC (22:50)
[2024-10-14 23:18] VITALS: BP 117/65
[2024-10-15 07:05] VITALS: BP 128/69
[2024-10-15 07:11] LABS: Glucose - Point of Care 177 mg/dl (70-99)
[2024-10-15] MEDS: VISBIOME 1 CAP PO (07:38)
[2024-10-15] MEDS: TOPROL XL 25 MG PO ×2 (07:38→20:26)
[2024-10-15] MEDS: MUCINEX 600 MG PO ×2 (07:39→20:25)
[2024-10-15] MEDS: OCUVITE SOFTGEL 1 CAP PO ×2 (07:39→20:25)
[2024-10-15] MEDS: VIBRAMYCIN 100 MG PO ×2 (07:39→20:26)
[2024-10-15] MEDS: ELIQUIS 2.5 MG PO ×2 (07:39→20:25)
[2024-10-15] MEDS: PACERONE 200 MG PO (07:39)
[2024-10-15] MEDS: NOVOLOG FLEXPEN-LOW RESISTANCE 1 UNITS SC ×3 (07:40→16:58)
[2024-10-15 07:49] LABS: % Basophils 0.3 % (0-2); % Eosinophils 0.6 % (0-6); % Immature Granulocytes 1.5 % (0-0.5); % Lymphocytes 16.3 % (20.5-51.1); % Monocytes 8.1 % (1.7-9.3); % Neutrophils 73.2 % (42.2-75.2); Absolute Eosinophils 0.1 10^3/uL (0-0.7); Absolute Immature Granulocytes 0.2 10^3/uL (0-0.05); Absolute Lymphocytes 2.1 10^3/uL (1.2-3.4); Absolute Neutrophils 9.4 10^3/uL (1.4-6.5); Hematocrit 27.6 % (39.0-52.0); Hemoglobin 9.4 g/dL (13.0-18.0); Mean Corp Hgb Conc. 34.1 g/dL (33.0-37.0); Mean Corpuscular Hgb 32.2 pg (27.0-31.0); Mean Corpuscular Volume 94.5 fL (80.0-94.0); Mean Platelet Volume 11.4 fL (7.4-10.4); Nucleated Red Blood Cells % 0 % (-); Platelet Count 157 10^3/uL (130-400); Red Blood Cell Count 2.92 10^6/uL (4.70-6.10); Red Cell Dist. Width 15.6 % (11.5-14.5); White Blood Cell Count 12.9 10^3/uL (4.8-10.8)
[2024-10-15 08:03] LABS: Blood Urea Nitrogen 29 mg/dl (9-20); Carbon Dioxide 19 mmol/L (22-30); Chloride 111 mmol/L (98-107); Estimated Creatinine Clearance 25 ml/min; Glucose 155 mg/dl (70-99); Sodium 139 mmol/L (135-145); eGFR 33.51
--- NOTE | 2024-10-15 11:24 | PN.CDI ---
CDI
- -
CDI:
Physician Documentation Request
Admit Date: 10/13/24 17:00
Dear Doctor Genevieve,
Please review the following and provide your response in the progress notes.
Clinical Indicators:
The diagnosis of bifascicular block was included in the signed 10/13 EKG
- 10/13 EKG - NSR with right bundle branch block and left anterior fascicular block
- 10/14 PN 'Paroxysmal typical atrial flutter -had cardioversion August 2022'
Please indicate in your progress notes if you are in agreement that the above diagnosis is valid for this patient:
____ - Bifascicular block is a valid diagnosis (Please include it in your progress notes)
____ - Bifascicular block is not a valid diagnosis for this patient
____ - Other (please specify)
Use of terms such as suspected, likely, concern for, or probable are acceptable for a diagnosis that is being evaluated, monitored or treated as if it exists and can be coded in the inpatient setting, when documented at the time of discharge.
Thank you,
Jasen Serna RN
CDI Specialist
Please use your independent medical judgment in providing your response.
--- NOTE | 2024-10-15 11:46 | W.PN.HOSP.TC ---
Addendum entered and electronically signed by Ross Vallejo DO 10/15/24 13:28:
Bifascicular block is a valid diagnosis
Original Note:
Today's Communication/Plan
-
Discharge
Assessment / Plan
Assessment / Plan
Gen-AAOx3, NAD
HEENT-NC, AT, anicteric, clear oral mm
Neck-supple
CV-reg, no M, +S1/S2
Lungs-clear B/L
Abd-soft, NT, ND
Ext-no edema
Musculoskeletal-no cyanosis, clubbing
Skin-warm and dry
Neuro-grossly non-focal
Psych-calm, cooperative
Sepsis due to pneumonia -presumed community-acquired pneumonia. Has had a productive cough for the past 2 weeks, mostly clear phlegm but occasionally brown and elizabet colored. Denies hemoptysis. Did have diarrhea for 2 days prior to admission. No
bowel movements recorded in the hospital.
Admission 2 view chest x-ray shows slightly increased bibasilar opacities representing scarring and/or atelectasis, less likely pneumonia.
Chest CT shows mild posterior bibasilar pneumonia, left greater than right. Minor bilateral upper lobe pneumonitis. Trace pleural effusions.
Leukocytosis improving. Afebrile. Urinary antigens negative, influenza negative. Unfortunately, blood cultures not sent.
Lactic acidosis due to sepsis, resolved.
Can transition to oral antibiotics and discharge today. Discussed with patient and .
Clinically stable, not requiring oxygen.
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 ALAN improved. Creatinine stable at 1.9. This may be his baseline. Recommend outpatient follow-up.
Hold valsartan, monitor labs.
Acute traumatic left 8th and 9th rib fractures -due to trauma from fall, likely underlying osteoporosis as well. Mildly displaced fractures noted on x-ray. Continue supportive care, lidocaine patch. Encouraged incentive spirometry. Does have
some atelectasis on chest x-ray.
Acute on chronic anemia -baseline chronic anemia with hemoglobin running between 11 and 12. Hemoglobin stable at 9.4. No obvious bleeding. MCV normal.
Anemia labs noted in August of this year showed normal iron panel with ferritin of 17. Appears that he was getting iron infusions as outpatient.
B12 347, folic acid greater than 20. Suspect anemia of chronic inflammation.
DM2 with hyperglycemia -hemoglobin A1c 6.8% on October 05. Glucose 177 this morning. At home he is on metformin and Lantus insulin. Would discontinue metformin given ALAN and CKD.
Hyperlipidemia -atorvastatin.
Essential hypertension -stable.
Paroxysmal typical atrial flutter -had cardioversion August 2022. Continue amiodarone, Eliquis.
Chronic heart failure preserved EF -stable.
Moderate aortic stenosis -last echocardiogram August 2024.
History of nephrolithiasis
BERENICE -unclear if still on CPAP.
BPH
History of left-sided colon cancer -underwent robotic left colectomy June 2022, Dr. Welsh.
Full code
Dispo -medically stable for discharge home. Outpatient follow-up with PCP.
32 minutes spent in discharge process.
updated at the bedside.
Anticipated Discharge: Today
Subjective/Interval History
-
Date of Service: October 15, 2024
Patient seen and examined. Complaining of left-sided chest pain due to rib fractures. Denies shortness of breath.
Objective Data
-
Labs:
Laboratory Results
10/15/24
06:25
WBC 12.9 H
Hgb 9.4 L
Hct 27.6 L
Plt Count 157
Sodium 139
Potassium 4.0
Chloride 111 H
Carbon Dioxide 19 L
BUN 29 H
Creatinine 1.9 H
Glucose 155 H
Calcium 8.0 L
Vital Signs:
Vital Signs
Temp Pulse Resp BP Pulse Ox
98.9 F 82 18 128/69 92
10/15/24 07:05 10/15/24 07:39 10/15/24 07:05 10/15/24 07:39 10/15/24 07:05
I&O
10/14/24 10/15/24 10/16/24
06:59 06:59 06:59
Intake Total 800 / 800 600 / 600
Output Total 325 / 325
Balance 475 / 475 600 / 600
Review of Systems
-
History Source: Patient
All other systems: Reviewed and negative
--- NOTE | 2024-10-15 11:56 | W.DS.TRANS ---
DC Summary - [employer]
-
Discharge Instructions:
Discharge Diagnosis/Procedures Community-acquired pneumonia, left 8th and 9th
rib fractures, acute kidney injury, chronic
kidney disease, anemia
Diet Diabetic, Carb Controlled
Activity As tolerated
Driving Restrictions As prior to admission
Bathing Restrictions None
Blood Work CBC, BMP next week with your primary care doctor
Instructions:
Stand-Alone Forms:
Changes to Home Medications: Yes
Discharge Medications:
DC Medications w/original date entered in [facility]
atorvastatin 10 mg tablet 10 mg PO QPM High cholesterol 12/07/18
vitamins A,C,Z-wtcf-erwksw 4,296 mcg-226 mg-90 mg capsule (PreserVision AREDS) 1 cap PO BID Supplement 12/07/18
calcium 600 mg (as carbonate)-vit D3 20 mcg (800 unit) chewable tablet (Caltrate plus D) 1 tab PO DAILY Supplement 08/28/21
multivitamin 1 tab PO DAILY Supplement 06/25/22
metoprolol succinate 25 mg tablet,extended release 24 hr 25 mg PO BID Blood Pressure 12/31/22
amiodarone 200 mg tablet 200 mg PO DAILY 09/06/24
cyanocobalamin (vitamin B-12) 1,000 mcg tablet 1,000 mcg PO DAILY 09/06/24
docusate sodium 100 mg capsule (Colace) 100 mg PO DAILY 09/06/24
Iron Infusion 1 dose IV .SEE BELOW 10/13/24
acetaminophen 500 mg tablet (Tylenol Extra Strength) 1,000 mg PO HSPRN PRN mild pain 10/13/24
insulin glargine 100 unit/mL (3 mL) subcutaneous pen (Lantus Solostar U-100 Insulin) 12 unit SC HS 10/13/24
valsartan 160 mg tablet 160 mg PO BID 10/13/24
amoxicillin 875 mg-potassium clavulanate 125 mg tablet 1 tab PO BID #10 tabs 10/15/24
apixaban 2.5 mg tablet (Eliquis) 2.5 mg PO BID #60 tabs 10/15/24
guaifenesin 600 mg tablet, extended release 12 hr 600 mg PO Q12 #0 tabs 10/15/24
lidocaine 4 % topical patch 1 patch topical DAILY@1999 #10 ea 10/15/24
oxycodone 5 mg tablet 5 mg PO Q4HPRN PRN severe pain #20 tabs 10/15/24
Home Medication Changes
Eliquis dose reduced
Metformin discontinued
Pending Results: No
[2024-10-15 12:25] LABS: Glucose - Point of Care 178 mg/dl (70-99)
--- NOTE | 2024-10-15 12:47 | CM ---
CM following re: discharge planning.
Reviewed pt's chart, met with pt and pt's spouse at bedside.
According to pt is medically stable to be discharged tomorrow. Both pt and his spouse are aware, expressed their agreement with discharge and they stated their daughter will be available tomorrow to transport the pt home. Pt's spouse stated she
does not drive.
IMM reviewed, placed on chart, pt has a copy.
Please fax discharge instructions to [facility] at [phone].
D/C plan: home tomorrow 10/16/24 with [facility] and family support. Daughter to transport at discharge.
[2024-10-15 15:00] VITALS: BP 128/58
[2024-10-15] MEDS: ROCEPHIN 1000 MG IV (15:29)
[2024-10-15] MEDS: STERILE WATER FOR INJECTION 10 ML IV (15:29)
[2024-10-15 16:58] LABS: Glucose - Point of Care 180 mg/dl (70-99)
[2024-10-15] MEDS: LIPITOR 10 MG PO (16:59)
[2024-10-15] MEDS: LIDOCAINE 4% PATCH 1 PATCH TOPICAL (20:26)
[2024-10-15 21:49] LABS: Glucose - Point of Care 211 mg/dl (70-99)
[2024-10-15 23:00] VITALS: BP 140/66
[2024-10-15] MEDS: LANTUS 0.06 UNITS SC (23:31)
[2024-10-16 07:08] VITALS: BP 152/85
[2024-10-16 07:13] LABS: Glucose - Point of Care 154 mg/dl (70-99)
[2024-10-16 07:33] LABS: Blood Urea Nitrogen 32 mg/dl (9-20); Calcium 7.8 mg/dl (8.4-10.2); Carbon Dioxide 21 mmol/L (22-30); Chloride 114 mmol/L (98-107); Estimated Creatinine Clearance 28 ml/min; Glucose 146 mg/dl (70-99); Potassium 3.9 mmol/L (3.5-5.1); Sodium 142 mmol/L (135-145)
[2024-10-16] MEDS: NOVOLOG FLEXPEN-LOW RESISTANCE 1 UNITS SC (09:28)
[2024-10-16] MEDS: ELIQUIS 2.5 MG PO (09:34)
[2024-10-16] MEDS: VIBRAMYCIN 100 MG PO (09:34)
[2024-10-16] MEDS: TOPROL XL 25 MG PO (09:34)
[2024-10-16] MEDS: VISBIOME 1 CAP PO (09:34)
[2024-10-16] MEDS: PACERONE 200 MG PO (09:34)
[2024-10-16] MEDS: MUCINEX 600 MG PO (09:34)
[2024-10-16] MEDS: OCUVITE SOFTGEL 1 CAP PO (09:34)
--- NOTE | 2024-10-16 09:46 | W.PN.HOSP.TC ---
Today's Communication/Plan
-
Discharge
Assessment / Plan
Assessment / Plan
Gen-AAOx3, NAD
HEENT-NC, AT, anicteric, clear oral mm
Neck-supple
CV-reg, no M, +S1/S2
Lungs-clear B/L
Abd-soft, NT, ND
Ext-no edema
Musculoskeletal-no cyanosis, clubbing
Skin-warm and dry
Neuro-grossly non-focal
Psych-calm, cooperative
Sepsis due to pneumonia -presumed community-acquired pneumonia. Has had a productive cough for the past 2 weeks, mostly clear phlegm but occasionally brown and elizabet colored. Denies hemoptysis. Did have diarrhea for 2 days prior to admission. No
bowel movements recorded in the hospital.
Admission 2 view chest x-ray shows slightly increased bibasilar opacities representing scarring and/or atelectasis, less likely pneumonia.
Chest CT shows mild posterior bibasilar pneumonia, left greater than right. Minor bilateral upper lobe pneumonitis. Trace pleural effusions.
Leukocytosis improving. Afebrile. Urinary antigens negative, influenza negative. Unfortunately, blood cultures not sent.
Lactic acidosis due to sepsis, resolved.
Discharge on Augmentin.
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 ALAN improved. Creatinine improved to 1.7. Recommend outpatient follow-up.
Resume valsartan on discharge.
Acute traumatic left 8th and 9th rib fractures -due to trauma from fall, likely underlying osteoporosis as well. Mildly displaced fractures noted on x-ray. Continue supportive care, lidocaine patch. Encouraged incentive spirometry. Does have
some atelectasis on chest x-ray.
Acute on chronic anemia -baseline chronic anemia with hemoglobin running between 11 and 12. Hemoglobin stable at 9.4. No obvious bleeding. MCV normal.
Anemia labs noted in August of this year showed normal iron panel with ferritin of 17. Appears that he was getting iron infusions as outpatient.
B12 347, folic acid greater than 20. Suspect anemia of chronic inflammation.
Bifascicular block on EKG.
DM2 with hyperglycemia -hemoglobin A1c 6.8% on October 05. Glucose 154 this morning. At home he is on metformin and Lantus insulin. Would discontinue metformin given ALAN and CKD.
Hyperlipidemia -atorvastatin.
Essential hypertension -stable.
Paroxysmal typical atrial flutter -had cardioversion August 2022. Continue amiodarone, Eliquis.
Chronic heart failure preserved EF -stable.
Moderate aortic stenosis -last echocardiogram August 2024.
History of nephrolithiasis
BERENICE -unclear if still on CPAP.
BPH
History of left-sided colon cancer -underwent robotic left colectomy June 2022, Dr. Welsh.
Full code
Dispo -medically stable for discharge home. Outpatient follow-up with PCP.
Anticipated Discharge: Today
Subjective/Interval History
-
Date of Service: October 16, 2024
Patient seen and examined. Still with left-sided pleuritic chest pain with deep breathing. Denies shortness of breath.
Objective Data
-
Labs:
Laboratory Results
10/16/24
06:45
Sodium 142
Potassium 3.9
Chloride 114 H
Carbon Dioxide 21 L
BUN 32 H
Creatinine 1.7 H
Glucose 146 H
Calcium 7.8 L
Vital Signs:
Vital Signs
Temp Pulse Resp BP Pulse Ox
98.5 F 76 16 152/85 95
10/16/24 07:08 10/16/24 09:34 10/16/24 07:08 10/16/24 09:34 10/16/24 07:08
I&O
10/15/24 10/16/24 10/17/24
06:59 06:59 06:59
Intake Total 600 / 600 780 / 780
Output Total 975 / 975
Balance 600 / 600 -195 / -195
Review of Systems
-
History Source: Patient
All other systems: Reviewed and negative
[2024-10-16] MEDS: ROXICODONE 5 MG PO (09:51)
--- NOTE | 2024-10-16 11:13 | CM ---
CM reviewed chart and noted dc order
Bedside meeting with pt
Plan for home with [facility]
He has already called dtr who will transport home between [id number]
[facility] chart [facility]
Discharge Disposition- home with [facility], dtr transport
[2024-10-16 12:43] LABS: Glucose - Point of Care 257 mg/dl (70-99)
[2024-10-16] MEDS: NOVOLOG FLEXPEN-LOW RESISTANCE SC (13:11)
[2024-10-16 13:18] VITALS: BP 156/77
== END 2024-10-16 14:01 | disposition home health service (06) | DRG 871 ==
LOC: 2 NORTH 17:00
PROVIDERS: Emergency Medicine; Nurse Practitioner; ADMITTING PHYSICIAN Student in an Organized Health Care Education/Training Program; ATTENDING PHYSICIAN Hospitalist; EMERGENCY PHYSICIAN Emergency Medicine; FAMILY PHYSICIAN Family Medicine
DX: A41.9 Sepsis, unspecified organism (principal); J18.9 Pneumonia, unspecified organism; S22.42XA Multiple fractures of ribs, left side, initial encounter for closed fracture; N17.9 Acute kidney failure, unspecified; I50.32 Chronic diastolic (congestive) heart failure; I13.0 Hypertensive heart and chronic kidney disease with heart failure and stage 1 through stage 4 chronic kidney disease, or unspecified chronic kidney disease; I45.2 Bifascicular block; E78.00 Pure hypercholesterolemia, unspecified; R65.20 Severe sepsis without septic shock; E11.22 Type 2 diabetes mellitus with diabetic chronic kidney disease; I48.91 Unspecified atrial fibrillation; W07.XXXA Fall from chair, initial encounter; I25.10 Atherosclerotic heart disease of native coronary artery without angina pectoris; N18.32 Chronic kidney disease, stage 3b; D63.1 Anemia in chronic kidney disease; E11.65 Type 2 diabetes mellitus with hyperglycemia; E86.9 Volume depletion, unspecified; G47.33 Obstructive sleep apnea (adult) (pediatric); N40.0 Benign prostatic hyperplasia without lower urinary tract symptoms; I35.0 Nonrheumatic aortic (valve) stenosis; I25.2 Old myocardial infarction; Z79.01 Long term (current) use of anticoagulants; Z79.4 Long term (current) use of insulin; Z79.899 Other long term (current) drug therapy; Z85.038 Personal history of other malignant neoplasm of large intestine; Z87.891 Personal history of nicotine dependence
CPT/HCPCS: 71046; 71100; 71250; 73502; 80048; 80053; 82962; 83605; 83735; 85025; 87449; 87899; 93005; 96361; 96374; 97162; 99285

== ENCOUNTER → 2025-02-18 09:57 | Outpatient (REF) | payer OTHER, SELFPAY ==
[2025-02-18 12:01] LABS: Hematocrit 39.6 % (39.0-52.0); Hemoglobin 12.6 g/dL (13.0-18.0); Mean Corp Hgb Conc. 31.8 g/dL (33.0-37.0); Mean Corpuscular Volume 104.2 fL (80.0-94.0); Nucleated Red Blood Cells % 0 % (-); Platelet Count 195 10^3/uL (130-400); Red Cell Dist. Width 13.0 % (11.5-14.5)
[2025-02-18 12:39] LABS: ALT (SGPT) 26 U/L (0-50); AST (SGOT) 23 U/L (17-59); Albumin 4.1 g/dl (3.5-5.0); Alkaline Phosphatase 76 U/L (38-126); Blood Urea Nitrogen 45 mg/dl (9-20); Calcium 9.1 mg/dl (8.4-10.2); Carbon Dioxide 29 mmol/L (22-30); Chloride 106 mmol/L (98-107); Glucose 117 mg/dl (70-99); Iron 84 ug/dl (49-181); Potassium 4.6 mmol/L (3.5-5.1); Sodium 143 mmol/L (135-145); Total Protein 7.0 g/dl (6.3-8.2); eGFR 27.93
[2025-02-18 12:48] LABS: Total Iron Binding Capacity 237 ug/dl (261-462)
[2025-02-18 13:05] LABS: TSH 0.52 uIU/ml (0.47-4.68)
[2025-02-18 13:08] LABS: CEA 3.17 ng/ml
[2025-02-18 13:09] LABS: Ferritin 141.0 ng/ml (17.9-464.0)
[2025-02-18 13:40] LABS: Folate > 20.0 ng/ml (2.76-20); Vitamin B12 718 pg/ml (239-931)
== END ==
LOC: RAD 09:57
PROVIDERS: ATTENDING PHYSICIAN Internal Medicine Cardiovascular Disease; FAMILY PHYSICIAN Internal Medicine; REFERRING PHYSICIAN Internal Medicine Hematology & Oncology
DX: I10 Essential (primary) hypertension (principal); C18.6 Malignant neoplasm of descending colon; D51.9 Vitamin B12 deficiency anemia, unspecified; D50.8 Other iron deficiency anemias; Z86.718 Personal history of other venous thrombosis and embolism; Z95.828 Presence of other vascular implants and grafts; Z79.01 Long term (current) use of anticoagulants
CPT/HCPCS: 36415; 71046; 80053; 82378; 82607; 82728; 82746; 83540; 83550; 84443; 85025

== ENCOUNTER → 2025-03-07 11:07 | Outpatient (REF) | payer OTHER, SELFPAY | LOC: RAD 11:07 | PROVIDERS: ATTENDING PHYSICIAN Internal Medicine Hematology & Oncology; FAMILY PHYSICIAN Internal Medicine; OTHER PHYSICIAN Internal Medicine Cardiovascular Disease | DX: C18.6 Malignant neoplasm of descending colon (principal); D51.9 Vitamin B12 deficiency anemia, unspecified; D50.8 Other iron deficiency anemias; Z86.718 Personal history of other venous thrombosis and embolism; Z95.828 Presence of other vascular implants and grafts; Z79.01 Long term (current) use of anticoagulants | CPT/HCPCS: 71046 ==

== ENCOUNTER → 2025-03-29 14:16 | Outpatient (REF) | payer OTHER, SELFPAY | LOC: REG 14:16 | PROVIDERS: ATTENDING PHYSICIAN Internal Medicine Cardiovascular Disease | DX: I50.32 Chronic diastolic (congestive) heart failure (principal); I10 Essential (primary) hypertension | CPT/HCPCS: 36415; 83880 ==

== ENCOUNTER → 2025-04-05 10:02 | Outpatient (REF) | payer OTHER, SELFPAY | LOC: RSP 10:02 | PROVIDERS: ATTENDING PHYSICIAN Internal Medicine Cardiovascular Disease; FAMILY PHYSICIAN Internal Medicine | DX: R06.02 Shortness of breath (principal); I50.32 Chronic diastolic (congestive) heart failure | CPT/HCPCS: 88738; 94010; 94727; 94729 ==

== ENCOUNTER → 2025-04-11 09:32 | Outpatient (REF) | payer OTHER, SELFPAY ==
[2025-04-11 10:56] LABS: Hematocrit 39.6 % (39.0-52.0); Hemoglobin 13.0 g/dL (13.0-18.0); Mean Corp Hgb Conc. 32.8 g/dL (33.0-37.0); Mean Corpuscular Volume 98.3 fL (80.0-94.0); Nucleated Red Blood Cells % 0 % (-); Platelet Count 191 10^3/uL (130-400); Red Cell Dist. Width 13.2 % (11.5-14.5)
[2025-04-11 11:22] LABS: Glycohemoglobin (HgbA1c) 8.1 % (4.0-5.9)
[2025-04-11 11:32] LABS: Microalbumin, Random Urine 8.1 mg/dl (0.6-1.7)
[2025-04-11 12:37] LABS: HDL Cholesterol 60 mg/dl; LDL Cholesterol, Calculated 76 mg/dl; Very Low Density Lipoprotein 13 mg/dl (0-30)
== END ==
LOC: REG 09:32
PROVIDERS: ATTENDING PHYSICIAN Internal Medicine
DX: I10 Essential (primary) hypertension (principal); Z79.4 Long term (current) use of insulin; E11.22 Type 2 diabetes mellitus with diabetic chronic kidney disease
CPT/HCPCS: 36415; 80061; 82043; 82570; 83036; 84439; 84443; 85025